=== PATIENT | male | born 1975 ===

== ENCOUNTER 2023-06-12 12:30 | Inpatient (IN) | payer OTHER ==
[~2023-06-12] VITALS: Ht 188 cm; Wt 120.2 kg
[2023-06-17] MEDS ORDERED: CEFTRIAXONE SODIUM 2,000 MG VIAL ONE (12:28)
[2023-06-17] MEDS ORDERED: METRONIDAZOLE/SODIUM CHLORIDE 500 MG/100 ML PIGGYBACK IV ONE (12:28)
[2023-06-17] MEDS ORDERED: CEFTRIAXONE SODIUM 2,000 MG VIAL IV SCH (14:00)
[2023-06-17] MEDS ORDERED: METRONIDAZOLE/SODIUM CHLORIDE 500 MG/100 ML PIGGYBACK IV SCH (14:00)
[2023-06-17] MEDS ORDERED: ONDANSETRON HCL 2 MG/ML VIAL IV PRN (14:30)
[2023-06-17] MEDS ORDERED: RINGERS SOLUTION,LACTATED 1,000 ML IV SCH (14:30)
[2023-06-17 16:05] LABS: HEMATOCRIT 37.4 % (39.0-48.0); HEMOGLOBIN 12.6 g/dL (13-16.00); MEAN CELL VOLUME 79.7 fL (80.0-100.00); MEAN CORPUSCULAR HEMOGLOBIN 26.9 pg (27.00-32.0); MEAN CORPUSCULAR HGB CONC 33.8 g/dl (32.0-36.0); PLATELET COUNT 275 K/uL (150-450); RED BLOOD COUNT 4.69 M/uL (4.00-6.00); RED CELL DISTRIBUTION WIDTH 13.2 % (11.5-14.5)
[2023-06-17 16:42] LABS: ALBUMIN 3.5 gm/dL (3.4-5.0); BILIRUBIN TOTAL 0.65 mg/dL (0.3-1.2); CALCIUM 8.5 mg/dL (8.5-10.1); CREATININE SERUM 0.82 mg/dL (0.70-1.30); GFR 101.6; GLOBULINA 2.9 G/DL (2.4-3.5); MAGNESIUM 2.1 mg/dL (1.8-2.4); PHOSPHOROUS 2.9 mg/dL (2.5-4.9); POTASSIUM 3.78 mEq/L (3.5-5.1); TOTAL PROTEIN 6.4 gm/dL (6.4-8.2); TSH 1.26 uIU/mL (0.358-3.74)
[2023-06-17 16:47] LABS: ABG PH 7.402 (7.35-7.45); ABG PO2 195.1 mmHg (80-100); ABG pCO2 40.8 mmHg (35-45); BASE EXCESS 0 mmol/l; BICARBONATE 24.8 mmol/l (23-25); SaO2 99.7 %; Tco2 26.9 mmol/l
[2023-06-17 16:48] LABS: allen test SATISFACTORY; o2 66 %; puncture site RADIAL LEFT
[2023-06-17] MEDS ORDERED: FAMOTIDINE/PF 20 MG/2 ML VIAL ONE (20:30)
[2023-06-17] MEDS ORDERED: FAMOTIDINE/PF 20 MG/2 ML VIAL IV PUSH SCH (21:00)
[2023-06-18] MEDS ORDERED: NA PHOS,M-B/NA PHOS,DI-BA 1 BOTTLE ENEMA RECTAL STA (18:08)
[2023-06-18 22:17] LABS: ABG PH 7.424 (7.35-7.45); ABG PO2 110.9 mmHg (80-100); ABG pCO2 37.1 mmHg (35-45); BASE EXCESS -0.3 mmol/l; BICARBONATE 23.7 mmol/l (23-25); SaO2 98.4 %; Tco2 24.9 mmol/l
[2023-06-18 22:19] LABS: allen test SATISFACTORY; o2 21 %; puncture site RADIAL RIGHT
[2023-06-19] MEDS ORDERED: ENOXAPARIN SODIUM 40 MG/0.4 ML SYRINGE SUBCUTANEO SCH (09:00)
[2023-06-19] MEDS ORDERED: ALBUTEROL SULFATE 3 ML/2.5 MG AMPUL.NEB IH ONE (09:15)
[2023-06-19] MEDS ORDERED: LIDOCAINE HCL 1%/Epi 20ML VIAL IJ ONE (11:15)
[2023-06-19] MEDS ORDERED: BUPIVACAINE HCL 30 ML VIAL IJ ONE (11:15)
[2023-06-19] MEDS ORDERED: METRONIDAZOLE/SODIUM CHLORIDE 500 MG/100 ML PIGGYBACK IV ONE (11:15)
[2023-06-19] MEDS ORDERED: CEFTRIAXONE SODIUM 2,000 MG VIAL IV ONE (11:15)
[2023-06-19] MEDS ORDERED: SUGAMMADEX SODIUM 200 MG/2 ML VIAL IV ONE (14:45)
[2023-06-19] MEDS ORDERED: FUROsemide 20 MG/2 ML VIAL IV STA (17:59)
[2023-06-19] MEDS ORDERED: LABETALOL HCL 200 MG/40 ML VIAL IV STA (17:59)
[2023-06-19 19:05] LABS: ABG PH 7.385 (7.35-7.45); ABG pCO2 42.5 mmHg (35-45); BASE EXCESS -0.3 mmol/l; BICARBONATE 24.9 mmol/l (23-25); Tco2 26.2 mmol/l; allen test SATISFACTORY; o2 40 %; puncture site RADIAL RIGHT
[2023-06-20] MEDS ORDERED: GABAPENTIN 300 MG CAPSULE PO PRN (10:45)
[2023-06-20] MEDS ORDERED: SIMETHICONE 125 MG CAPSULE PO PRN (10:45)
[2023-06-20] MEDS ORDERED: HYOSCYAMINE SULFATE 0.125 MG TAB.SUBL SL PRN (10:45)
[2023-06-20] MEDS ORDERED: ACETAMINOPHEN 500 MG GEL..CAP PO PRN (10:45)
[2023-06-20 11:23] LABS: HEMATOCRIT 37.8 % (39.0-48.0); HEMOGLOBIN 12.9 g/dL (13-16.00); MEAN CELL VOLUME 78.8 fL (80.0-100.00); MEAN CORPUSCULAR HEMOGLOBIN 26.9 pg (27.00-32.0); MEAN CORPUSCULAR HGB CONC 34.1 g/dl (32.0-36.0); PLATELET COUNT 271 K/uL (150-450); RED CELL DISTRIBUTION WIDTH 13.3 % (11.5-14.5)
[2023-06-20 11:57] LABS: CALCIUM 8.8 mg/dL (8.5-10.1); CREATININE SERUM 0.75 mg/dL (0.70-1.30); GFR 112.62; MAGNESIUM 2.3 mg/dL (1.8-2.4); POTASSIUM 3.9 mEq/L (3.5-5.1)
[2023-06-20] MEDS ORDERED: LACTOBACILLUS ACIDOPHILUS 1 CAP CAP PO SCH (17:00)
[2023-06-20] MEDS ORDERED: CELECOXIB 200 MG CAPSULE PO SCH (17:00)
[2023-06-21 06:22] LABS: HEMATOCRIT 38.4 % (39.0-48.0); HEMOGLOBIN 13.2 g/dL (13-16.00); MEAN CELL VOLUME 78.1 fL (80.0-100.00); MEAN CORPUSCULAR HEMOGLOBIN 26.8 pg (27.00-32.0); MEAN CORPUSCULAR HGB CONC 34.3 g/dl (32.0-36.0); PLATELET COUNT 277 K/uL (150-450); RED BLOOD COUNT 4.91 M/uL (4.00-6.00); RED CELL DISTRIBUTION WIDTH 13.3 % (11.5-14.5)
[2023-06-21 06:58] LABS: CALCIUM 8.8 mg/dL (8.5-10.1); CREATININE SERUM 0.79 mg/dL (0.70-1.30); GFR 106.06; MAGNESIUM 2.4 mg/dL (1.8-2.4); PHOSPHOROUS 2.6 mg/dL (2.5-4.9); POTASSIUM 3.9 mEq/L (3.5-5.1)
[2023-06-23] MEDS ORDERED: NEURONTIN300 MG PO (13:29)
[2023-06-23] MEDS ORDERED: LEVSIN/SL0.125 MG SL (13:29)
[2023-06-23] MEDS ORDERED: GAS RELIEF125 MG PO (13:29)
[2023-06-23] MEDS ORDERED: PERCOCET 5-3251 EACH PO (13:30)
[2023-06-23] MEDS ORDERED: LOPERAMIDE2 MG PO (13:30)
== END 2023-06-23 15:09 | disposition home or self-care (01) | DRG 329 ==
LOC: SURH 06-17 07:00 → O/R 06-17 10:20 → SURH 06-17 10:20 → ICU 06-17 10:20 → SURH 06-17 12:30 → O/R 06-17 14:52 → SURH 06-17 15:09 → ICU 06-18 20:28 → SURH 06-21 13:55
PROVIDERS: Internal Medicine; Internal Medicine Geriatric Medicine; ADMIT Surgery; ATTEND Surgery
PROC: B24BYZZ Ultrasonography of Heart with Aorta using Other Contrast (ICD-10-PCS; 2023-06-17)
PROC: 0DBP4ZZ Excision of Rectum, Percutaneous Endoscopic Approach (ICD-10-PCS; 2023-06-19)
PROC: 0D1B4Z4 Bypass Ileum to Cutaneous, Percutaneous Endoscopic Approach (ICD-10-PCS; principal; 2023-06-19 08:00)
DX: C20 Malignant neoplasm of rectum (principal); R09.2 Respiratory arrest; K92.2 Gastrointestinal hemorrhage, unspecified; R19.4 Change in bowel habit; G47.30 Sleep apnea, unspecified; I10 Essential (primary) hypertension; E66.9 Obesity, unspecified; Z68.34 Body mass index [BMI] 34.0-34.9, adult